=== PATIENT | female | born 1970 | race Caucasian/White ===

== ENCOUNTER → 2016-08-16 | Outpatient (CLI) | payer MEDICARE, SELFPAY | END | disposition home or self-care (01) | LOC: RAD.S 15:13 | DX: M25.541 Pain in joints of right hand (principal) ==

== ENCOUNTER → 2016-08-18 | Outpatient (CLI) | payer MEDICARE, SELFPAY | END | disposition home or self-care (01) | LOC: RAD.S 08-16 15:42 | DX: N63 Unspecified lump in breast (principal); N64.4 Mastodynia; N60.01 Solitary cyst of right breast ==